=== PATIENT | female | born 1985 | race Two or more races ===

== ENCOUNTER 2023-12-13 14:03 | Emergency (ER) | payer OTHER, SELFPAY ==
[2023-12-13 14:05] VITALS: BP 116/79
[2023-12-13 14:24] LABS: Urine Albumin 2+ (Neg - Trace); Urine Bilirubin 1+ (Negative); Urine Character Clear (Clear); Urine Color Yellow; Urine Glucose Negative (Negative); Urine Ketone Trace (Negative); Urine Leukocyte 1+ (Negative); Urine Nitrite Negative (Negative); Urine Occult Blood 3+ (Negative); Urine Urobilinogen Negative (Neg - 1+)
--- NOTE | 2023-12-13 14:33 | ED.GENMED ---
History of Present Illness
General
Chief Complaint: Abdominal Symptoms
Source: patient
Exam Limitations: none
Time Seen by Provider: 12/13/23 14:13
Nursing documentation reviewed up to this point in time: agreed with
History of Present Illness
History of Present Illness:
Patient is a 38-year-old female G2, P2 who presents to the ER for evaluation of abdominal pain. She started with abdominal pain 5 days ago. She points to her right lower quadrant and does feel pain in her back and deep in the vaginal area. She
denies any nausea vomiting fever chills constipation or diarrhea. She last moved her bowels this morning. Her last menstrual period was December 06. She reports she was told she had fibroids during but had no surgery. No prior abdominal
surgery.
Review of Systems
Review of Systems
Allergies reviewed?: Yes
All Other Systems: ROS reviewed and negative except as documented in HPI and ROS
Constitutional: Reports no symptoms; Denies fever, fatigue or chills
Respiratory: Reports no symptoms
Cardiac: Reports no symptoms
ABD/GI: Denies abdominal pain, nausea, vomiting, diarrhea or constipated
: Reports no symptoms; Denies flank pain, urgency or discharge
Musculoskeletal: Reports back pain
Skin: Reports no symptoms
Neurological: Reports no symptoms
Psychiatric: Reports no symptoms
Phy Exam
General Physical Exam
General Presentation: well appearing
General age: appears stated age
General Skin: warm and dry
General Habitus: normal
General Mental: alert
General Hydration: appears well hydrated
Cardiovascular Exam
Cardiovascular Exam: regular rate/rhythm, no murmur and normal peripheral pulses
Pulmonary Exam
Pulmonary Exam: lungs clear and no respiratory distress
Gastrointestinal Exam
Gastrointestinal Exam: soft and other (tender rlq no guarding )
Neurological Exam
Neurological Exam: alert and oriented x3
Musculoskeletal Exam
Musculoskeletal Exam: full ROM
Skin Exam
Skin Exam: normal color and warm/dry
Psychiatric Exam
Psychiatric Exam: normal mood/affect
Course
Orders/Labs/Results
Orders:
Orders
12/13/23 14:12
Urinalysis Reflex To Culture Urgent
Date Specimen was Collected: 12/13/23
Time Specimen was Collected: 14:09
Urine Microscopic Reflex Cult Urgent
Urine Culture Urgent
WANDA Source: U
Specimen Description:
Date Specimen was Collected: 12/13/23
Time Specimen was Collected: 14:09
12/13/23 14:44
US Pelvis W Transvag Combined Urgent
Reason For Exam: rlq pain
12/13/23 14:57
IV Insert/Care/Rem.- Treatment PRN
0.9% Sodium Chloride 1000 ml [Nss] 1,000 ml IV BOLUS
Ketorolac [Toradol] 15 mg IV NOW STA
12/13/23 15:01
CT Abd/Pel (IV only)-DH only Urgent
Comment:
Reason For Exam: rlq pain
12/13/23 15:21
Complete Blood Count/With Diff Urgent
Comprehensive Metabolic Panel Urgent
HCG, Serum Qualitative Screen Urgent
Comment: HCG QUAL ADDED ON BY FLOOR 3:30PM 12-13-23
Lipase Urgent
12/13/23 15:29
Add On- LAB Urgent
Tests Added?: hcg qual
Abnormal Lab Results
12/13/23 12/13/23
14:12 15:21
WBC 11.4 H 10^3/uL
(4.8-10.8)
Hct 36.8 L %
(37.0-47.0)
Absolute Neuts (auto) 8.8 H 10^3/uL
(1.4-6.5)
Neutrophils % 76.8 H %
(42.2-75.2)
Lymphocytes % 16.5 L %
(20.5-51.1)
Creatinine 0.5 L mg/dL
(0.6-1.0)
Glucose 147 H mg/dl
(70-99)
Urine Ketones Trace A
(Negative)
Ur Occult Blood Reflex 3+ A
(Negative)
Urine Bilirubin 1+ A
(Negative)
Leukocyte Esterase Rfl 1+ A
(Negative)
Urine Bacteria (Reflex) Many A
(Negative)
Urine Albumin (Reflex) 2+ A
(Neg - Trace)
12/13/23 15:21
12/13/23 15:21
Vital Signs
Initial and Last Documented VS:
Initial Vital Signs
Temp Pulse Resp BP Pulse Ox
98.2 F 79 18 116/79 100
12/13/23 14:05 12/13/23 14:05 12/13/23 14:05 12/13/23 14:05 12/13/23 14:05
Last Documented Vital Signs
Temp Pulse Resp BP Pulse Ox
98.2 F 79 18 121/77 100
12/13/23 14:05 12/13/23 14:05 12/13/23 14:05 12/13/23 15:25 12/13/23 15:30
MDM/Problems Addressed
MDM/Problems Addressed:
Patient is a 38-year-old female G2, P2 presents with right lower quadrant pain and pain rating to lower back for the past 5 days constant. Patient denies any nausea vomiting fever chills. Patient presents awake alert no acute distress ultrasound
does show enlarged right ovary with 139 cc of fluid with 2 complex cystic lesions in the right ovary possible endometriomas. There is good blood flow. Patient was given fluids and Toradol now feeling pain-free. She is well-appearing in no acute
distress. Afebrile white count minimally elevated however no infectious symptoms. No UTI symptoms culture sent. Same findings demonstrated on the CAT scan. In addition patient does have a fibroid which she is aware of. They are new to the area
will DC with outpatient followed by [facility] I did speak with DR Park pt to f/u in office on saturday.
*Radiology
Radiology exam reviewed: radiology read reviewed
*Pulse Oximetry
Patient hypoxic: no
*Critical Care Note
Total Time (30-74mins, 75-104mins- exclusive of procedures): Not Applicable
ED Attending Note
-
Portions of this chart may have been created with voice recognition software.� Occasional wrong word or��sound alike� substitutions may have occurred due to the inherent limitations of voice recognition software.
Discharge Plan
Departure
Patient Disposition: Home (Routine Discharge)
Date of Disposition: 12/13/23
Time of Disposition: 19:32
Patient with high blood pressure during this ER visit?: No
Condition: Fair
Covid-19: Not Applicable
Discharge Problem:
Abdominal pain
Instructions: Abdominal Pain
Referrals:
Donna Park MD [Active] -
Sari Pop DO [Family Provider] -
Activity Restrictions/Additional Instructions:
Ibuprofen 400-mg - 600 mg every 8 hours with food for discomfort. Call gynecology office on Saturday morning for appointment next week. Return if any worsening of symptoms.
Interventions
Interventions:
*Risk Screen - Suicide Last Done: 12/13/23 14:05
*General Assessment Last Done: 12/13/23 14:05
*Neglect/Abuse Screening Last Done: 12/13/23 15:31
CG-Iibgqh-Niktymmgwr Assessment Last Done: 12/13/23 15:32
Discharge Date and Time
Print Language: AMHARIC
[2023-12-13 14:53] LABS: Urine Squamous Cell >30 /LPF (Few)
[2023-12-13 14:54] LABS: Urine Bacteria Many (Negative); Urine Red Blood Cell 0-2 /HPF (0-2)
[2023-12-13 14:58] VITALS: BMI 30.3
[2023-12-13] MEDS: NSS 1000 IV (15:21)
[2023-12-13] MEDS: TORADOL 15 MG IV (15:23)
[2023-12-13 15:25] VITALS: BP 121/77
[2023-12-13 15:41] LABS: % Basophils 0.4 % (0-2); % Eosinophils 0.7 % (0-6); % Immature Granulocytes 0.4 % (0-0.5); % Lymphocytes 16.5 % (20.5-51.1); % Monocytes 5.2 % (1.7-9.3); % Neutrophils 76.8 % (42.2-75.2); Absolute Eosinophils 0.1 10^3/uL (0-0.7); Absolute Lymphocytes 1.9 10^3/uL (1.2-3.4); Absolute Monocytes 0.6 10^3/uL (0.1-0.6); Absolute Neutrophils 8.8 10^3/uL (1.4-6.5); Hematocrit 36.8 % (37.0-47.0); Hemoglobin 13.1 g/dL (12.0-16.0); Mean Corp Hgb Conc. 35.6 g/dL (33.0-37.0); Mean Corpuscular Hgb 30.3 pg (27.0-31.0); Mean Platelet Volume 10.2 fL (7.4-10.4); Nucleated Red Blood Cells % 0 %; Platelet Count 329 10^3/uL (130-400); Red Blood Cell Count 4.33 10^6/uL (4.20-5.40); Red Cell Dist. Width 12.4 % (11.5-14.5); White Blood Cell Count 11.4 10^3/uL (4.8-10.8)
[2023-12-13 15:56] LABS: HCG, Serum Qualitative Screen Negative
[2023-12-13 16:05] LABS: ALT (SGPT) 21 U/L (0-35); AST (SGOT) 25 U/L (14-36); Albumin 4.6 g/dl (3.5-5.0); Alkaline Phosphatase 94 U/L (38-126); Blood Urea Nitrogen 12 mg/dl (7-17); Calcium 9.4 mg/dl (8.4-10.2); Carbon Dioxide 26 mmol/L (22-30); Chloride 101 mmol/L (98-107); Estimated Creatinine Clearance 114 ml/min; Glucose 147 mg/dl (70-99); Potassium 3.9 mmol/L (3.5-5.1); Sodium 138 mmol/L (135-145); Total Bilirubin 0.4 mg/dl (0.2-1.3); Total Protein 7.6 g/dl (6.3-8.2); eGFR > 60.00
[2023-12-13 16:06] LABS: Lipase 51 U/L (23-300)
== END 2023-12-13 19:50 | disposition home or self-care (01) ==
LOC: EMR 14:03
PROVIDERS: Emergency Medicine; Nurse Practitioner; EMERGENCY PHYSICIAN Emergency Medicine; FAMILY PHYSICIAN Family Medicine
DX: R10.31 Right lower quadrant pain (principal); R10.2 Pelvic and perineal pain; D25.9 Leiomyoma of uterus, unspecified
CPT/HCPCS: 99285; 96361; 96374; 74177; 76830; 76856; 80053; 81003; 81015; 83690; 84703; 85025; 87086; Q9967

== ENCOUNTER 2023-12-19 15:40 | Inpatient (IN) | payer OTHER, SELFPAY ==
--- NOTE | 2023-12-19 15:57 | W.PN.ADMIT ---
Progress Note - Admit
Progress Note - Admit
38 yo with R ovarian cyst x2 - 6cm and 4cm. Seen in ER on Saturday. Had CT and u/s in ER - no torsion on imaging. Was tx with toradol and d/c to home. Neg preg test - CBC showed mild inc in WBC and no anemia - Lytes normal - gluc elevated
but not fasting - urine was contaminated.
Came to our office today as New Pt f/u from ER visit. PT still having RLQ pain - described as severe. No n/v. No VB - no vag d/c -
On exam - AFVSS - T = 98.2 - 112/78 - no rebound or guarding but + pain with RLQ palpation. Pt in visable distress.
Ass - ov cyst with significant pain
Plan Pain mgmt
IVF - NPO in case going to OR
Repeat BW and urine testing
MRI to eval ov cysts
Re-eval after imaging and pain mgmt
--
See dictated full H+P
[2023-12-19 16:43] VITALS: BP 114/74
[2023-12-19 17:00] LABS: Urine Albumin Trace (Neg - Trace); Urine Bilirubin Negative (Negative); Urine Character Clear (Clear); Urine Color Yellow; Urine Glucose Negative (Negative); Urine Ketone Negative (Negative); Urine Leukocyte Negative (Negative); Urine Nitrite Negative (Negative); Urine Occult Blood Negative (Negative); Urine Urobilinogen Negative (Neg - 1+)
--- NOTE | 2023-12-19 17:19 | PTCARENOTE ---
Admitted to room 225 via wheelchair from ED. with her. C/O right lower abdominal and groin pain that radiates to her back. No nausea or vomiting. VSS, lungs clear.
UA collected and sent to the lab. For MRI. NPO .Waiting for further orders from Dr. Park.
[2023-12-19 17:43] LABS: % Basophils 0.8 % (0-2); % Eosinophils 1.1 % (0-6); % Immature Granulocytes 0.3 % (0-0.5); % Lymphocytes 19.1 % (20.5-51.1); % Neutrophils 72.7 % (42.2-75.2); Absolute Basophils 0.1 10^3/uL (0-0.2); Absolute Eosinophils 0.1 10^3/uL (0-0.7); Absolute Lymphocytes 2.1 10^3/uL (1.2-3.4); Absolute Monocytes 0.7 10^3/uL (0.1-0.6); Hematocrit 37.9 % (37.0-47.0); Hemoglobin 13.3 g/dL (12.0-16.0); Mean Corp Hgb Conc. 35.1 g/dL (33.0-37.0); Mean Corpuscular Hgb 30.2 pg (27.0-31.0); Mean Corpuscular Volume 85.9 fL (81.0-99.0); Mean Platelet Volume 10.2 fL (7.4-10.4); Nucleated Red Blood Cells % 0 %; Platelet Count 317 10^3/uL (130-400); Red Blood Cell Count 4.41 10^6/uL (4.20-5.40); Red Cell Dist. Width 12.5 % (11.5-14.5); White Blood Cell Count 11.1 10^3/uL (4.8-10.8)
[2023-12-19] MEDS: TORADOL 30 MG IV ×2 (18:05→23:52)
[2023-12-19 18:06] LABS: Blood Urea Nitrogen 6 mg/dl (7-17); Calcium 9.7 mg/dl (8.4-10.2); Carbon Dioxide 27 mmol/L (22-30); Chloride 102 mmol/L (98-107); Glucose 95 mg/dl (70-99); Potassium 4.7 mmol/L (3.5-5.1); Sodium 142 mmol/L (135-145); eGFR > 60.00
[2023-12-19] MEDS: NORMOSOL-R 1000 IV (18:35)
[2023-12-19 22:00] VITALS: BP 111/70
--- NOTE | 2023-12-19 22:07 | PTCARENOTE ---
Call placed to MRI regarding current order. As MRI has no availabliity for this evening, plan is for scan in the morning. Update to Dr Park who confirmed there was no surgery scheduled for this evening. Pt may have clear fluids, per Dr Park.
Advised of pt's questions re: heparin therapy. Pt educated on standards of care as inpatient for DVT prevention. Pt and family discussed heparin administration and decline at this time as they would like to wait until MRI results and treatment
options explained by Dr Park. Pt states Toradol has taken pain level to 0/10. Amb indep to bathroom. Indep in removing compression sleeves to ambulate to bathroom.
[2023-12-19 23:15] VITALS: BP 113/67
[2023-12-20] MEDS: NORMOSOL-R 1000 IV (02:38)
--- NOTE | 2023-12-20 03:43 | PTCARENOTE ---
Addendum entered by Cheryl Orozco RN 12/20/23 03:46:
Date and time of original note : 12/19/2023 @ 0375
Original Note:
Pt received into my care. Pt ambulatory to BR, voiding without difficulty. Pt on clear liquids, apple juice and water given per request. Assessment performed when pt back in bed. Compression sleeves reapplied. IV of Normosol infusing without
difficulty, site without redness or swelling. Pt has no c/o's of pain @ this time.
[2023-12-20] MEDS: TORADOL 30 MG IV (05:46)
--- NOTE | 2023-12-20 07:29 | W.PN.GYN.DG ---
Today's Communication / Plan
-
MRI today - will await results for next plan
Poss reg diet after MRI if not planning surgery
Will try to switch to po meds today
Assessment / Plan
-
Assessment: Ovarian cyst - here for pain mgmt
Plan:
MRI today - will await results for next plan
Poss reg diet after MRI if not planning surgery
Will try to switch to po meds today
Subjective / Objective Data
Subjective Data
PT feeling better - pain is now gone - got better with IV torodol - no percocet taken - slept well last night
Objective Data
Vital Signs
Temp Pulse Resp BP
98.5 F 73 16 113/67
12/19/23 23:15 12/19/23 23:15 12/19/23 23:15 12/19/23 23:15
Intake & Output
12/19/23 12/20/23 12/21/23
06:59 06:59 06:59
Intake Total 1000 / 1000
Output Total 500 / 500
Balance 500 / 500
Intake:
Oral fluids 250 / 250
IV fluids (Total) 750 / 750
Output:
Urine, Voided 500 / 500
Physical Exam
-
Abdomen: Soft, Nontender and Other (no pain with palpation - no guarding - no rebound)
Bowel Sounds: Normal
Extremities: Other (Comp stockings on)
Data Reviewed
-
Lab Data
12/19/23 17:35
12/19/23 17:35
Urine Color Yellow 12/19/23 16:31
Urine Clarity Clear (Clear) 12/19/23 16:31
Urine pH 7.0 (5.0-9.0) 12/19/23 16:31
Ur Specific [place] 1.010 (<1.030) 12/19/23 16:31
Urine Ketones Negative (Negative) 12/19/23 16:31
Urine Occult Blood Cancelled 12/19/23 16:31
Urine Nitrite Cancelled 12/19/23 16:31
Urine Bilirubin Negative (Negative) 12/19/23 16:31
Urine Urobilinogen Negative (Neg - 1+) 12/19/23 16:31
Ur Leukocyte Esterase Cancelled 12/19/23 16:31
Urine Albumin Cancelled 12/19/23 16:31
[2023-12-20 08:00] VITALS: BP 119/79
--- NOTE | 2023-12-20 11:46 | CM ---
Met with and her at bedside
Pt lives with her and 2 children in an a apartment
Recently here from [place]. working, pt cares for 2 young children, independent
DME - none
SNF/HH - no hx
Has ride at discharge
PCP - Dr Renee
Pharm - [facility]
Plan - anticipate home no needs
[2023-12-20 12:00] VITALS: BP 115/70
--- NOTE | 2023-12-20 14:47 | W.PN.GYN.DG ---
Today's Communication / Plan
-
Disc poss surg tomorrow for ov cyst - poss endomtrioma - pt and decline
Feeling better as far as pain - would like to think about it
Disc poss LPS RSO
Plan for now is po torodol and f/u in the office next week
Understands to take torodol for just 5 days - take with food - rx sent
Sent rx for percocet #5 in case break thru pain
Assessment / Plan
-
Assessment:
Ovarian cyst - adm for pain control - doing well
MRI looks like endometrioma
Plan:
Disc poss surg tomorrow for ov cyst - poss endomtrioma - pt and decline
Feeling better as far as pain - would like to think about it
Disc poss LPS RSO
Plan for now is po torodol and f/u in the office next week
Understands to take torodol for just 5 days - take with food - rx sent
Sent rx for percocet #5 in case break thru pain
Subjective / Objective Data
Subjective Data
Feeling better - last painmed was IV torodaol at 6 am - + eating ok
Objective Data
Vital Signs
Temp Pulse Resp BP
97.6 F 78 18 115/70
12/20/23 12:00 12/20/23 12:00 12/20/23 12:00 12/20/23 12:00
Intake & Output
12/19/23 12/20/23 12/21/23
06:59 06:59 06:59
Intake Total 1000 / 1000
Output Total 500 / 500
Balance 500 / 500
Intake:
Oral fluids 250 / 250
IV fluids (Total) 750 / 750
Output:
Urine, Voided 500 / 500
Physical Exam
-
Cardiac: Regular rate & rhythm
Lungs: Clear: Bilateral
Abdomen: Soft, Nontender and Other (No pain to palpation)
Bowel Sounds: Normal
Data Reviewed
-
Lab Data
12/19/23 17:35
12/19/23 17:35
Urine Color Yellow 12/19/23 16:31
Urine Clarity Clear (Clear) 12/19/23 16:31
Urine pH 7.0 (5.0-9.0) 12/19/23 16:31
Ur Specific [place] 1.010 (<1.030) 12/19/23 16:31
Urine Ketones Negative (Negative) 12/19/23 16:31
Urine Occult Blood Cancelled 12/19/23 16:31
Urine Nitrite Cancelled 12/19/23 16:31
Urine Bilirubin Negative (Negative) 12/19/23 16:31
Urine Urobilinogen Negative (Neg - 1+) 12/19/23 16:31
Ur Leukocyte Esterase Cancelled 12/19/23 16:31
Urine Albumin Cancelled 12/19/23 16:31
[2023-12-20] MEDS: TORADOL 10 MG PO (14:55)
--- NOTE | 2023-12-20 14:57 | W.DS.TRANS ---
DC Summary - [employer]
-
Discharge Instructions:
Discharge Diagnosis/Procedures pain mgmt for ov cyst
Diet No restrictions
Activity No strenuous activity
Driving Restrictions As prior to admission
Bathing Restrictions None
Instructions:
Stand-Alone Forms:
Changes to Home Medications: No
Discharge Medications:
DC Medications w/original date entered in [facility]
No Meds [No Current Medications] 12/19/23
Home Medication Changes
Pending Results: No
--- NOTE | 2023-12-20 15:16 | PTCARENOTE ---
For discharge to home as ordered by Dr. Park. Discharge instructions given to pt. by MD .Has good understanding of follow up care and appointment.
HL removed . Requested tordol 10 mg PO before discharge for pain scale 3. here . Transport called.
== END 2023-12-20 15:30 | disposition home or self-care (01) | DRG 761 ==
LOC: LDRP 15:40
PROVIDERS: ADMITTING PHYSICIAN Obstetrics & Gynecology Gynecology
DX: N80.121 Deep endometriosis of right ovary (principal); D25.9 Leiomyoma of uterus, unspecified
CPT/HCPCS: 72197; 80048; 81003; 85025; A9575

== ENCOUNTER → 2024-02-17 12:49 | Outpatient (REF) | payer OTHER, SELFPAY | LOC: HWRAD 12:49 | PROVIDERS: ATTENDING PHYSICIAN Obstetrics & Gynecology Gynecology; FAMILY PHYSICIAN Family Medicine | DX: N83.209 Unspecified ovarian cyst, unspecified side (principal) | CPT/HCPCS: 76830; 76856 ==

== ENCOUNTER 2024-03-06 06:08 | Day surgery (SDC) | payer OTHER, SELFPAY ==
[2024-03-03 10:05] VITALS: BMI 26.7
[2024-03-03 11:38] LABS: % Basophils 0.9 % (0-2); % Eosinophils 1.7 % (0-6); % Immature Granulocytes 0.3 % (0-0.5); % Lymphocytes 29.8 % (20.5-51.1); % Monocytes 6.7 % (1.7-9.3); % Neutrophils 60.6 % (42.2-75.2); Absolute Basophils 0.1 10^3/uL (0-0.2); Absolute Eosinophils 0.1 10^3/uL (0-0.7); Absolute Lymphocytes 2.1 10^3/uL (1.2-3.4); Absolute Monocytes 0.5 10^3/uL (0.1-0.6); Absolute Neutrophils 4.2 10^3/uL (1.4-6.5); Hematocrit 37.2 % (37.0-47.0); Hemoglobin 12.7 g/dL (12.0-16.0); Mean Corp Hgb Conc. 34.1 g/dL (33.0-37.0); Mean Corpuscular Hgb 30.8 pg (27.0-31.0); Mean Corpuscular Volume 90.3 fL (81.0-99.0); Mean Platelet Volume 10.7 fL (7.4-10.4); Nucleated Red Blood Cells % 0 %; Platelet Count 313 10^3/uL (130-400); Red Blood Cell Count 4.12 10^6/uL (4.20-5.40); Red Cell Dist. Width 13.1 % (11.5-14.5); White Blood Cell Count 6.9 10^3/uL (4.8-10.8)
[2024-03-03 12:14] LABS: HCG, Serum Qualitative Screen Negative
[2024-03-03 12:18] LABS: ALT (SGPT) 16 U/L (0-35); AST (SGOT) 20 U/L (14-36); Albumin 4.4 g/dl (3.5-5.0); Alkaline Phosphatase 81 U/L (38-126); Blood Urea Nitrogen 5 mg/dl (7-17); Calcium 8.6 mg/dl (8.4-10.2); Carbon Dioxide 24 mmol/L (22-30); Chloride 106 mmol/L (98-107); Estimated Creatinine Clearance 108 ml/min; Glucose 89 mg/dl (70-99); Potassium 4.3 mmol/L (3.5-5.1); Sodium 142 mmol/L (135-145); Total Bilirubin 0.1 mg/dl (0.2-1.3); Total Protein 7.3 g/dl (6.3-8.2); eGFR > 60.00
[2024-03-06] VITALS (13 sets, daily range): BP systolic 90–111; BP diastolic 56–76; BMI 26.7
[2024-03-06] MEDS: TYLENOL 1000 MG PO (07:07)
--- NOTE | 2024-03-06 10:35 | OR.RPT ---
Operative Report
Operative Report
Procedure date: March 06, 2024
Preoperative diagnosis: Right pelvic mass, suspect 8 cm endometrioma
Postop diagnosis same plus extensive posterior cul-de-sac adhesions
Procedure: Diagnostic laparoscopy, right retroperitoneal space exploration with laparoscopic resection of right tube and ovary
Surgeon: Brian Winston
Procedure in detail: I was asked intraoperatively by Dr. Park and Dr Mayorga to assist with resection of a right tube and ovary via minimally invasive laparoscopic approach. This patient had presented previously to the emergency room in November
and had pelvic ultrasound suggestive of a 7 to 8 cm endometrioma. This had been further evaluated with MRI and the plan of treatment today was laparoscopic right salpingo-oophorectomy and left salpingectomy. When I arrived to the operating room
patient was undergoing laparoscopy. The ovary on the right side appeared to be enlarged containing cystic mass and was densely adherent to the posterior aspect of the uterus, and some adhesions to the posterior cul-de-sac. The left salpingectomy
had already been performed. They were having difficulty removing the right tube and ovary and were considering converting to an open procedure. They asked me if I could assist with trying to complete this procedure laparoscopically. I scrubbed in
and initially remove the HUMI uterine manipulator and placed a electrical manager uterine manipulator in the uterus with 3.0 cm NATALIA ring. Following this I was able to push the uterus and further and elevated to give a better view of the posterior
cul-de-sac. I opened the right retroperitoneal space and identify the infundibulopelvic ligament the IP ligament was sealed 3 times with vessel sealer and divided, we followed this to the mass, I used the vessel sealer to seal and ligate some of
the attachments of the mass to the posterior cul-de-sac. In the process of manipulating the mass it was ruptured and dark black and brown fluid exited from the cystic mass and once there was collapse we were able to seal and divide the mass from
the posterior aspect of the uterus and also peel it off the posterior cul-de-sac. The mass was eventually placed in a laparoscopic bag and was brought out through the umbilical incision that they had already in place. I used a [employer] bipolar
instrument to coagulate any bleeding vessels on the posterior and right lateral aspect of the uterus where there was endometrioma embedded in the wall of the uterus, we achieved good hemostasis here. 4 mL of Tisseel was sprayed over this area. We
irrigated copiously and there was no active bleeding. I turned the case over to the original gynecology team and left the operating room, I did remove the uterine manipulator. This completes my portion of the procedure. The remainder of the
procedures performed will be dictated by the gynecology team.
[2024-03-06] MEDS: SUBLIMAZE 25 MCG IV (11:49)
--- NOTE | 2024-03-06 12:14 | SUR.PHASEI ---
patient extremely sleepy, keeps eyes closed, speaks in slight whisper, c/o of pain 7/10 when asked, although BP systolic in 90's, whispers. prefers to lie flat - encouraged to raise head of bed and deep breath, given smaller dose of pain med with
lower BP and somulence.
--- NOTE | 2024-03-06 12:22 | SUR.PHASEI ---
has slept, now strongly encouraged to have head of bed elevated, deep breathe and encourage to move to SDS try PO intake and possibly a pain oral med if needed, abdomen unchanged.
--- NOTE | 2024-03-06 13:06 | SUR.PHASEI ---
1215 - agrees with plan to move to SDS - try po intake and use po pain med if needed - no nausea, vss, no change in assess
[2024-03-06] MEDS: TYLENOL 650 MG PO (13:47)
[2024-03-06] MEDS: ZOFRAN 4 MG IV (13:58)
--- NOTE | 2024-03-06 14:10 | PTCARENOTE ---
Patient given Tylenol for pain. Patient also given Zofran for nausea IV. Patient resting at the present time. Will monitor patient.
--- NOTE | 2024-03-06 14:31 | PTCARENOTE ---
Report given to Annemarie BHATIA. Patient needs a couple more minutes prior to discharge. Will monitor patient.
== END 2024-03-06 14:51 | disposition home or self-care (01) ==
LOC: SDS 06:08
PROVIDERS: ATTENDING PHYSICIAN Obstetrics & Gynecology Gynecology; FAMILY PHYSICIAN Family Medicine
DX: Z30.2 Encounter for sterilization (principal); N80.121 Deep endometriosis of right ovary; N94.89 Other specified conditions associated with female genital organs and menstrual cycle; N73.6 Female pelvic peritoneal adhesions (postinfective); D25.9 Leiomyoma of uterus, unspecified; D27.0 Benign neoplasm of right ovary
CPT/HCPCS: 58661; 88302; 88305; 36415; 80053; 84703; 85025; 86850; 86900; 86901; C1776